=== PATIENT | male | born 1960 | race Caucasian/White ===

== ENCOUNTER 2024-09-23 10:01 | Day surgery (SDC) | payer MEDICARE, MEDICAID ==
[2024-09-16 10:56] LABS: BASOPHILS # (AUTO) 0.1 X10'3 (0-0.2); BASOPHILS % (AUTO) 1.6 % (0-1); EOSINOPHILS # (AUTO) 0.2 X10'3 (0-0.9); EOSINOPHILS % (AUTO) 2.7 % (0-6); LYMPHOCYTES # (AUTO) 1.3 X10'3 (1.1-4.8); LYMPHOCYTES % (AUTO) 23.3 % (21-51); MEAN CORPUSCULAR HEMOGLOBIN 34.8 PG (27.0-31.0); MEAN CORPUSCULAR HGB CONC 35.5 g/dL (33.0-36.5); MEAN CORPUSCULAR VOLUME 98.2 FL (78-98); MEAN PLATELET VOLUME 9.6 FL (7.4-10.4); MONOCYTES # (AUTO) 0.6 X10'3 (0-0.9); MONOCYTES % (AUTO) 10.9 % (2-12); NEUTROPHILS # (AUTO) 3.5 X10'3 (1.8-7.7); NEUTROPHILS % (AUTO) 61.5 % (42-75); PRE OP HEMATOCRIT 33.6 % (42.0-52.0); PRE OP HEMOGLOBIN 11.9 g/dL (14.0-17.9); PRE OP PLATELET COUNT 140 X10'3 (140-440); PRE OP WHITE BLOOD COUNT 5.7 10'3 (4.8-10.8); RED BLOOD COUNT 3.42 X10'6 (4.70-6.10); RED CELL DISTRIBUTION WIDTH 17.1 % (11.5-14.5)
[2024-09-16 11:24] LABS: ALBUMIN 4.4 G/DL (3.4-5.0); ALBUMIN/GLOBULIN RATIO 1.3 (1.1-1.5); ALKALINE PHOSPHATASE 69 IU/L (46-116); BLOOD UREA NITROGEN 8 MG/DL (7-18); BUN/CREATININE RATIO 9.3 (10.0-20.0); CALCIUM 9.6 MG/DL (8.5-10.1); CHLORIDE 103 MMOL/L (99-107); CREATININE 0.86 MG/DL (0.60-1.10); PRE OP ALT 34 U/L (30-65); PRE OP ANION GAP 9 (8-16); PRE OP AST 29 U/L (10-37); PRE OP BILIRUB, TOTAL 1.1 MG/DL (0.0-1.0); PRE OP GLUCOSE 75 MG/DL (70-104); PRE OP POTASSIUM 3.5 MMOL/L (3.4-5.1); PRE OP SODIUM 140 MMOL/L (135-145); TOTAL CARBON DIOXIDE 28.5 MMOL/L (24-32); TOTAL PROTEIN 7.9 G/DL (6.4-8.2); eGFR 89 ML/MIN
[~2024-09-23] VITALS: Ht 208.3 cm; Wt 69.4 kg
[2024-09-23] VITALS (17 sets, daily range): BP systolic 130–190; BP diastolic 53–91; PULSE 52–85; RESP 12–17; TEMP 98.3; O2SAT 92–100
[2024-09-23] MEDS: ceFAZolin 2gm in dextrose, iso 50 ML IV ONE (05:30)
[~2024-09-23 10:01] MED LIST: AMLO5TAB16 PO; APIX5TAB3 PO; ATOR-2 PO; FERR325T29 PO; FLO0.4C PO; FURO20TA4 PO; LISI10TA27; POTA-206 PO
[2024-09-23] MEDS: famotidine 20mg tablet PO ONE (11:49)
[2024-09-23] MEDS: ringers solution, lacted 1,000 ML IV SCH ×2 (11:50→14:16)
[2024-09-23] MEDS ORDERED: LIDOcaine 1% 30ml preserv. free vial ONE (12:15)
[2024-09-23] MEDS ORDERED: BUPIVAcaine 2.5mg/ml inj 50ml vial (contains preservative) ONE (12:16)
[2024-09-23] MEDS ORDERED: sevoflurane 250ml liquid IH ONE (12:23)
[2024-09-23] MEDS ORDERED: fentaNYL/PF 50MCG/1 ML 2ML syringe ONE (12:30)
[2024-09-23] MEDS ORDERED: dexamethasone sod phosphate 4mg/ml inj. ONE (12:45)
[2024-09-23] MEDS ORDERED: LIDOcaine 2% (20mg/ml) 5ml vial ONE (12:45)
[2024-09-23] MEDS ORDERED: ondansetron/PF 4mg/2ml inj ONE (12:45)
[2024-09-23] MEDS ORDERED: rocuronium 10mg/ml inj IV ONE (12:45)
[2024-09-23] MEDS ORDERED: midazolam 1 mg/ML 2ml injection ONE (12:45)
[2024-09-23] MEDS ORDERED: propofol inj 20 ML IV ONE (12:45)
[2024-09-23] MEDS ORDERED: proCHLORperazine 10 MG/2 ml inj IV PRN (12:50)
[2024-09-23] MEDS ORDERED: labetalol 20mg/4ml (5mg/ml) syringe IV PRN (12:50)
[2024-09-23] MEDS ORDERED: meperidine/PF 25mg/ml syringe IV PRN (12:50)
[2024-09-23] MEDS ORDERED: hydrALAZINE 20mg/ml inj. IV PRN (12:50)
[2024-09-23] MEDS ORDERED: HYDROmorphone/PF 0.2 MG/ML SYRINGE IV PRN ×2 (12:50)
[2024-09-23] MEDS ORDERED: morphine 2 MG/ML inj. syringe IV PRN (12:50)
[2024-09-23] MEDS ORDERED: ondansetron/PF 4mg/2ml inj IV PRN (12:50)
[2024-09-23] MEDS: BUPIVAcaine 0.25% w/Epi /PF 30ml vial IJ ONE (13:09)
[2024-09-23] MEDS ORDERED: glycopyrrolate 0.2mg/ml inj ONE (13:53)
[2024-09-23] MEDS ORDERED: neostigmine methylsulfate 1 MG/ML 10ml vial ONE (13:53)
[2024-09-23] MEDS: acetaminophen 1,000mg/100ml IV 100 ML IV PRN (14:13)
[2024-09-23] MEDS: morphine 4 MG/ML inj SYRINge IV PRN (15:13)
[2024-09-23] MEDS: oxyCODONE/APAP 5-325mg tablet PO PRN (16:59)
== END 2024-09-23 17:40 | disposition home or self-care (01) ==
LOC: PAS 10:01
PROVIDERS: ATTEND Surgery
DX: K40.20 Bilateral inguinal hernia, without obstruction or gangrene, not specified as recurrent (principal); I10 Essential (primary) hypertension; E78.5 Hyperlipidemia, unspecified; I25.10 Atherosclerotic heart disease of native coronary artery without angina pectoris; I25.2 Old myocardial infarction; N40.0 Benign prostatic hyperplasia without lower urinary tract symptoms; F17.210 Nicotine dependence, cigarettes, uncomplicated; Z87.440 Personal history of urinary (tract) infections; Z79.84 Long term (current) use of oral hypoglycemic drugs; Z79.899 Other long term (current) drug therapy; Z82.49 Family history of ischemic heart disease and other diseases of the circulatory system
CPT/HCPCS: 36415; 49650; 80053; 82948; 85025; A4215; A4618; C1781; J0131; J0690; J1100; J2003; J2250; J2270; J2405; J2704; J2710; J3010; J3490; J7030; J7120; Z7506; Z7508; Z7512; Z7610; S0020